=== PATIENT | male | born 1990 | race Caucasian/White ===

== ENCOUNTER 2017-09-14 12:31 | Inpatient (IN) | payer BC, OTHER ==
[~2017-09-14] VITALS: Ht 190.5 cm; Wt 108.9 kg
[2017-09-14] MEDS ORDERED: MIRALAX 17 GM POWD.PACK PO PRN (17:45)
[2017-09-14] MEDS ORDERED: ONDANSETRON 4 MG/2 ML VIAL IM PRN (17:45)
[2017-09-14] MEDS ORDERED: MAGNESIUM HYDROXIDE 30 ML LIQUID UDC PO PRN (17:45)
[2017-09-14] MEDS ORDERED: IBUPROFEN 600 MG TABLET PO PRN (17:45)
[2017-09-14] MEDS ORDERED: NICOTINE POLACRILEX 4 MG GUM-PK OF TEN BC PRN (17:45)
[2017-09-14] MEDS ORDERED: MAG HYDROX/AL HYDROX/SIMETH 30 ML LIQUID UDC PO PRN (17:45)
[2017-09-14] MEDS ORDERED: LOPERAMIDE HCL 2 MG CAPSULE PO PRN ×2 (17:45)
[2017-09-14] MEDS ORDERED: DOCUSATE SODIUM 250 MG CAPSULE PO PRN (17:45)
[2017-09-14] MEDS ORDERED: NICOTINE 14 MG/24HR PATCH TD PRN (17:45)
[2017-09-14] MEDS ORDERED: BUPRENORPHINE HCL 2 MG TAB.SUBL SL PRN (17:45)
[2017-09-14] MEDS ORDERED: METHOCARBAMOL 750 MG TABLET PO PRN (17:45)
[2017-09-14] MEDS ORDERED: ONDANSETRON ODT 4 MG TAB.RAPDIS SL PRN (17:45)
--- NOTE | 2017-09-14 17:50 | NUR ---
PRE-ASSESSMENT 09/14/17 @ 1745 MET PATIENT IN INTAKE, VS BP 130/75, HR 77, O2 SATS 98%, T 98.1 PAIN LEVEL 4/10 GENERALIZED PAIN. PATIENT APPEARS WITH A FLAT DEPRESSED AFFECT BUT COOPERATES EASILY. PER PATIENT HE IS ALLERGIC TO SULFA ANTIBIOTICS , HAS NO SEIZURE HISTORY AND FOLLOWS A REGULAR DIET. MEDICAL HISTORY PER PATIENT OF DEPRESSION CURRENTLY BEING TREATED WITH LEXAPRO 20MG/DY AND HYPOTHYROID WHICH HE TAKES 25MCG SYNTHROID DAILY. PATIENT STATES THAT HE IS HERE TO DETOX FROM HEROIN. PCP IS DR DEEPA BORRERO AND PSYCHIATRIST IS DR YG CAMPBELL. EXPLAINED TO PATIENT POLICIES OF THE FLOOR, VS Q4H. WILL FINISH ASSESSMENT WHEN PATIENT IS IN HIS ROOM .
--- NOTE | 2017-09-14 18:00 | NUR ---
ASSESSMENT 26 YEAR OLD MALE AA/OX4 PRESENTED TO [facility] TO DETOX FROM HEROIN IV. HE IS THE PRIMARY SOURCE OF INFORMATION. PATIENT IS ADMITTED UNDER THE CARE OF DR BROWN AND IS IN ROOM 310. URINE PROVIDED BY PATIENT FOR URINE DRUG SCREEN AND THOROUGH BODY AND BELONGINGS CHECK DONE. SKIN CHECK CLEAR , PATIENT APPEARS ANXIOUS WITH A FLAT AFFECT BUT COOPERATES EASILY. PT DENIES ANY HISTORY OF SEIZURES, SI/HI. PATIENT STATES HE IS ALLERGIC TO SULFA ANTIBIOTICS. WEIGHT IS 240LBS AND HEIGHT IS 6'3". SUBSTANCE OF ABUSE HISTORY: HEROIN (TAR) IV 0.5-1GM INTRAVENOUS DAILY FOR PAST 3 MONTHS LAST USED TODAY 09/14/17 1 GRAM COCAINE LAST USED 1 MONTH AGO METHAMPHETAMINE LAST USED 1 MONTH AGO. PATIENT STATES HE HAS BEEN TO TREATMENT 8 OR 9 TIMES AND WAS SOBER FOR 5 1/2 YEARS BEFORE RELAPSING IN MAY 2017. LAST TREATMENT CENTER WAS [facility] IN 2011 PATIENT HAS A HISTORY OF R ACL REPAIR AND R ANKLE REPAIR. PRIMARY CARE PHYSICIAN IS DR DEEPA BORRERO ADMITTING COWS = 4 AND CIWA 8 PATIENT ORIENTED TO THE UNIT AND ROOM, FOLLOW MD PLAN OF CARE
[2017-09-14] MEDS ORDERED: LEVO25TA9 PO (18:06)
[2017-09-14] MEDS ORDERED: ESCI20TA37 PO (18:06)
[2017-09-14 19:52] LABS: BASOPHILS % (AUTO) 0.7 % (0.0-2.0); EOSINOPHILS # (AUTO) 0.1 K/uL (0.0-0.7); EOSINOPHILS % (AUTO) 1.8 % (0.0-7.0); HEMATOCRIT 36.5 % (36.7-47.1); HEMOGLOBIN 12.3 g/dL (12.5-16.3); LYMPHOCYTES # (AUTO) 1.9 K/uL (20.0-40.0); LYMPHOCYTES % (AUTO) 39.6 % (20.5-51.5); MEAN CORPUSCULAR HGB CONC 34 g/dL (32.5-36.3); MEAN CORPUSCULAR VOLUME 86.2 fL (73.0-96.2); MONOCYTES # (AUTO) 0.3 K/uL (2.0-10.0); MONOCYTES % (AUTO) 7.2 % (0.0-11.0); NEUTROPHILS # (AUTO) 2.4 K/uL (1.8-8.9); NEUTROPHILS % (AUTO) 50.7 % (38.5-71.5); PLATELET COUNT (AUTO) 259 K/uL (152-348); RED BLOOD CELL COUNT(AUTO) 4.24 MIL/uL (4.06-5.63); WHITE BLOOD COUNT (AUTO) 4.8 K/uL (3.6-10.2)
[2017-09-14 20:00] VITALS: BP 113/66
[2017-09-14 20:02] LABS: ETHANOL < 3 MG/DL (0-0)
[2017-09-14 20:03] LABS: ALANINE AMINOTRANSFERASE 150 U/L (16-63); ALKALINE PHOSPHATASE 76 U/L (50-136); ASPARTATE AMINOTRANSFERASE 59 U/L (15-37); BILIRUBIN,TOTAL 0.5 mg/dL (0.2-1.0); CARBON DIOXIDE 33 mmol/L (21-32); CHLORIDE 99 mmol/L (98-107); CREATININE 0.8 mg/dL (0.6-1.3); GLUCOSE 108 mg/dL (74-106); MAGNESIUM 1.8 mg/dL (1.8-2.4); POTASSIUM 3.9 mmol/L (3.5-5.1); TOTAL PROTEIN, SERUM 7.5 g/dL (6.4-8.2); UREA NITROGEN, BLOOD 16 mg/dL (7-18)
[2017-09-14 20:11] LABS: THYROID STIMULATING HORMONE 0.884 mIU/mL (0.358-3.740)
[2017-09-14 20:12] LABS: *AMPHETAMINE, URINE NEGATIVE (NEGATIVE); *BARBITURATE, URINE NEGATIVE (NEGATIVE); *CANNABINOID, URINE NEGATIVE (NEGATIVE); *COCCAINE, URINE NEGATIVE (NEGATIVE); *OPIATE, URINE POSITIVE (NEGATIVE); *PHENCYCLIDINE SCREEN,URINE NEGATIVE (NEGATIVE)
[2017-09-14] MEDS: ACETAMINOPHEN 325 MG TABLET PO PRN (20:45)
[2017-09-14] MEDS: GABAPENTIN 300 MG CAPSULE PO SCH (20:46)
[2017-09-14] MEDS: diphenhydrAMINE 50 MG CAPSULE PO PRN (20:46)
--- NOTE | 2017-09-14 20:46 | NUR ---
PRN TYLENOL 650 MG 2 TAB FOR PAIN, PRN NICOTINE GUM-PK OF TEN 4 MG 1 GUM, AND PRN BENADRYL 50 MG 1 CAP FOR INSOMNIA ADMINISTRATED TO PATIENT ORDERED. PATIENT TOLERATED WELL. ALL NEEDS MET. SAFETY MEASURES ON PLACE. CALL LIGHT WITHIN REACH, BED IN LOWEST POSITION, AND LOCKED, PADDED RAILS UP BILATERALLY. WILL CONTINUE TO MONITOR CLOSELY.
--- NOTE | 2017-09-14 21:46 | NUR ---
RE-ASSESSMENT Patient is sleeping. Respirations even and unlabored. RR 16. PRN Tylenol 650 mg 2tab PO for pain, PRN Nicotine Gum-Pk of ten 4 mg 1 Gum, and PRN Benadryl 50 mg 1 cap for insomnia administrated @2045 were effective. All needs met. Safety measures on place. Call light within reach, bed in lowest position and locked, padded rails up bilaterally rails up bilaterally. Will continue to monitor closely.
[2017-09-15] VITALS: BP 132/74
[2017-09-15 04:00] VITALS: BP 113/67
[2017-09-15] MEDS: LEVOTHYROXINE 25 MCG PO SCH (06:23)
--- NOTE | 2017-09-15 06:50 | NUR ---
END OF SHIFT NOTE 26 year old male admitted to [facility] on 09/14/2017 for Opioid, Methamphetamine, and Cocaine dependence. Patient is on PRN Medications with tolerated well without ASE. Patient reports Allergy to Sulfa, Sulfa (Sulfonamide Antibiotics), is on Full Code, Regular Diet, and Fall Precautions. PMH: Anxiety, Depression, Hypothyroidism, Insomnia, Narcolepsy, Right Knee repair r/t sport injury, and Right ankle repair r/t accident injury. Last COWS 6 @0400. Patient presented with anxiety, agitation, sweating, and tremors, that can be felt. COWS taken when patient's awake during night. Last VS @0400: T 98.3, BP 113/67, HR 75, RA SPO2 100%, RR 17, pain level "0/10". Patient denies SI/HI. Respirations unlabored and even. Patient denied SOB and chest pain. Skin is intact, warm and dry to touch. PRN Tylenol 650 mg 2tab PO for pain, PRN Nicotine Gum-Pk of ten 4 mg 1 Gum, and PRN Benadryl 50 mg 1 cap for insomnia administrated @2045 were effective. Patient remains compliant with treatment plan, medications, and diet regime. Patient slept 7 hours, intake 796 ml, voided x1. Encouraged fluids intake as tolerated. All needs met. Safety measures on place. Call light within reach, bed in lowest position and locked, padded rails up bilaterally. Patient endorsed to day shift nurse. Report given.
--- NOTE | 2017-09-15 07:15 | NUR ---
Start of Shift Software Verification Engineer received report on 26 year old male admitted to [facility] on 09/14/17 for Heroin, Methamphetamine and Cocaine detoxification. Pt reports allergy to Sulfa, full code and eats a regular diet. Pt reports a PMH of anxiety, depression, narcolepsy and insomnia. Skin is intact. Pt currently not on a taper and was administered Tylenol, Benadryl and nicotine gum on PRN basis on the NOC. Last recorded COWS 6, per report. Software Verification Engineer encounters pt in room resting on bed with eyes closed. Even and unlabored respirations with rise and fall of chest noted. Bed in low position, wheels locked and side rails up x2. Will continue to monitor, support and encourage according to plan of care.
[2017-09-15 08:13] VITALS: BP 127/77
[2017-09-15] MEDS ORDERED: INFLUENZA VACCINE 2017-2018 0.5 ML DISP.SYRIN IM ONE (09:00)
[2017-09-15] MEDS ORDERED: PNEUMOCOCCAL 23-VAL P-SAC VAC 0.5 ML VIAL IM ONE (09:00)
[2017-09-15] MEDS ORDERED: TUBERCULIN,PURIF.PROT.DERIV. 5 TU/0.1 ML TEST ID ONE (09:00)
[2017-09-15] MEDS: CLONIDINE HCL 0.1 MG TABLET PO PRN ×2 (09:16→17:21)
[2017-09-15] MEDS: GABAPENTIN 300 MG CAPSULE PO SCH ×3 (09:16→21:12)
[2017-09-15] MEDS: DICYCLOMINE HCL 20 MG TABLET PO PRN ×2 (09:16→17:21)
--- NOTE | 2017-09-15 09:16 | NUR ---
PRN Bentyl/Clonidine Pt complain of stomach cramps and chills and anxiety. Pt attempted non-pharmacological interventions with no success. Commercial Trailer Truck Driver administered medication per MD order and pt tolerated well. Will continue to monitor, support and encourage according to plan of care.
--- NOTE | 2017-09-15 09:26 | NUR ---
PRN Subutex Refusal Marine Rigger assessed pt with a COWS of 12 and pulled medication for pt's symptoms, including Subutex. Pt refused Subutex, " I don't think I want to start that yet." Marine Rigger and CRN returned Subutex to Pyxis. Will continue to monitor, support and encourage according to plan of care.
--- NOTE | 2017-09-15 10:16 | NUR ---
PRN Re-Assessment " I am feeling a little better. I am feeling it." Pt is resting and endorses relief. Will continue to monitor, support and encourage according to plan of care.
[2017-09-15 12:41] VITALS: BP 139/70
[2017-09-15] MEDS: DICYCLOMINE HCL 20 MG TABLET PO SCH ×2 (15:00→21:12)
[2017-09-15] MEDS ORDERED: Medication Not On Formulary EA (Escitalopram Oxalate 1 TAB) PO SCH (15:15)
[2017-09-15] MEDS: ESCITALOPRAM OXALATE 10 MG TABLET PO SCH (15:36)
[2017-09-15 16:15] VITALS: BP 117/65
[2017-09-15] MEDS: LORAZEPAM 1 MG TABLET PO PRN (17:22)
--- NOTE | 2017-09-15 17:24 | NUR ---
PRN Ativan/Robaxin/Bentyl/Clonidine Pt asks typewriter aligner for relief of symptoms. States, " I am considering the Subutex, what else do you have?" Pt states he wants to try and stay away from Subutex until needed. Customer Insight Analyst educated pt on benefits of all medication offered and explained we can treat the symptoms and see how pt feels. Pt states, " let's do that, I want to wait on the Subutex." Customer Insight Analyst administered medication, per MD orders, pt tolerated well. Will continue to monitor, support and encourage according to plan of care.
--- NOTE | 2017-09-15 18:24 | NUR ---
PRN Re-Assessment Pt with no further complaints. Pt in room resting on bed with eyes closed. Even and unlabored respirations with rise and fall of chest noted. Bed in low position, wheels locked and side rails up x2. Will continue to monitor, support and encourage according to plan of care.
--- NOTE | 2017-09-15 19:00 | NUR ---
End of Shift Crew Leader provided report on 26 year old male admitted to [facility] on 09/14/17 for Heroin, Methamphetamine and Cocaine detoxification. Pt reports allergy to Sulfa, full code and eats a regular diet. Pt reports a PMH of anxiety, depression, narcolepsy and insomnia. Skin is intact. Pt currently not on a taper and was administered Bentyl and Clonidine at 0916 and Ativan/Robaxin/Clonidine/Bentyl at 1730. Pt endorses experience with detoxing and is comfortable waiting on Subutex and treating the symptoms. COWS of 11 recorded at 1730. Pt has been in bed the entire shift. Pt is pleasant on approach and polite. A/O x4 and able to make needs known. Calm and cooperative. Bed in low position, wheels locked and side rails up x2. Will continue to monitor, support and encourage according to plan of care.
--- NOTE | 2017-09-15 19:05 | NUR ---
Start of Shift Patient Received. Patient is in his room, awake, alert and verbally responsive. Breathing even and non labored. Patient is a 26 year old male that continues on PRN medications for increased signs and symptoms of withdrawals. Per endorsement, Patient has not started on a taper due to signs and symptoms being managed with PRN Medications. patient was given PRN Ativan 2mg, Robaxin, Bentyl x2, Clonidine x2 with medications noted to be effective. PRN Subutex 4mg on hand for increased COWS. Last noted COWS 11. All needs attended to promptly. Will continue plan of care as ordered.
[2017-09-15 20:45] VITALS: BP 115/71
[2017-09-15] MEDS: HYDROXYZINE PAMOATE 25 MG CAPSULE PO PRN (21:12)
[2017-09-15] MEDS: CLONIDINE HCL 0.1 MG TABLET PO SCH (21:12)
[2017-09-15] MEDS: diphenhydrAMINE 50 MG CAPSULE PO PRN (21:12)
--- NOTE | 2017-09-15 21:15 | NUR ---
PRN Medication Administration Patient is noted to verbalize increased pain due to body aches, increased anxiety, and inability of falling asleep. Patient states "I'm just tossing and turning." PRN Motrin, Vistaril and Benadryl administered with routine medications. Will continue to monitor
--- NOTE | 2017-09-15 22:15 | NUR ---
PRN Medication Reassessment Patient is noted in bed sleeping. Breathing even and non labored. No signs of restlessness or discomfort noted. No facial grimacing noted. PRN Motrin, Vistaril, and Benadryl noted to be effective. Will continue to monitor.
[2017-09-16 00:36] VITALS: BP 118/71
[2017-09-16 04:23] VITALS: BP 117/69
[2017-09-16] MEDS: LEVOTHYROXINE 25 MCG PO SCH (06:58)
--- NOTE | 2017-09-16 07:05 | NUR ---
End of Shift Patient is in bed sleeping. Breathing even and non labored. No signs of restlessness or discomfort noted. Patient is a 26 year old male that continues on PRN medications for increased signs and symptoms of withdrawals. Patient received PRN Motrin, Vistaril, and Benadryl with medications noted to be effective. Last noted COWS 9. All needs attended to promptly. Will endorse to continue plan of care as ordered.
--- NOTE | 2017-09-16 07:20 | NUR ---
START OF SHIFT PATIENT IS A 26 YEAR OLD MALE ADMITTED TO [facility] ON 09/14/17 FOR HEROIN WITHDRAWAL. PATIENT IS ASLEEP IN BED AT THIS TIME, BREATHING EVEN AND UNLABORED, SIDE RAILS UP X 2. PRN MEDICATIONS GIVEN ON PM SHIFT : MOTRIN, VISTARIL AND BENADRYL, PATIENT SLEPT FOR 9 HOURS AND LAST COWS WAS 9. PATIENT HAS ALLERGIES TO SULFA ANTIBIOTICS. WILL FOLLOW MD PLAN OF CARE.
[2017-09-16 08:00] VITALS: BP 127/83
[2017-09-16] MEDS: GABAPENTIN 300 MG CAPSULE PO SCH ×3 (08:24→20:46)
[2017-09-16] MEDS: HYDROXYZINE PAMOATE 25 MG CAPSULE PO PRN ×2 (08:24→20:40)
--- NOTE | 2017-09-16 08:24 | NUR ---
PRN VISTARIL VISTARIL 25MG PO GIVEN FOR PATIENTS COMPLAINTS OF RESTLESSNESS AND ANXIETY LEVEL OF 7/10, WILL CONTINUE TO MONITOR AND REASSESS, SAFETY MEASURES IN PLACE, CALL LIGHT WITHIN REACH. Addendum: 09/16/17 at 1152 by VERITO LIMA RN PRN ATIVAN 2MG PO AND SUBUTEX 4 MG SL GIVEN TO PATIENT WILL CONTINUE TO MONITOR EFFECTIVENESS
[2017-09-16] MEDS: ESCITALOPRAM OXALATE 10 MG TABLET PO SCH (08:25)
[2017-09-16] MEDS: LORAZEPAM 1 MG TABLET PO PRN (08:25)
[2017-09-16] MEDS: CLONIDINE HCL 0.1 MG TABLET PO SCH ×3 (08:25→20:40)
[2017-09-16] MEDS: DICYCLOMINE HCL 20 MG TABLET PO SCH ×3 (08:25→20:41)
--- NOTE | 2017-09-16 09:24 | NUR ---
REASSESS PRN PATIENT STATES HE " FEELS LESS ANXIOUS" ANXIETY LEVEL NOW 4/10, WILL CONTINUE TO MONITOR.
--- NOTE | 2017-09-16 09:24 | NUR ---
PRN ATIVAN/SUBUTEX REASSESS COWS REDUCED FROM 13 TO 9 CIWA REDUCED FROM 9 TO 7 PATIENT STATES MEDICATIONS HAVE HELPED HIM CONTROL HIS ANXIETY AND WITHDRAWAL SYMPTOMS. CONTINUE TO MONITOR
[2017-09-16 11:07] LABS: HEPATITIS B SURFACE AG Negative (Negative)
[2017-09-16 12:00] VITALS: BP 137/83
[2017-09-16] MEDS: BUPRENORPHINE HCL 2 MG TAB.SUBL SL SCH ×2 (15:08→20:39)
[2017-09-16 16:00] VITALS: BP 127/70
--- NOTE | 2017-09-16 18:56 | NUR ---
End of Shift : Patient is a 26 year old male admitted to [facility] on 09/14/17 for withdrawal from heroin IV. Patient presented this morning with a flat, depressed affect and stated I want to take my detox meds and feel better . Patient complains of all over muscle cramps and Myalgia . patient requested and required PRN Ativan 2mg PO and Subutex 4mg SL and Vistaril 25mg PO to control his withdrawal symptoms of anxiety, agitation , restlessness and muscle aches for a COWS score of 13 and CIWA of 9@ 0800. Scheduled Subutex 2mg SL given at 1500 and to continue at 2100 and 0900 09/17/17. Patient responded well to medications and withdrawal symptoms decreased to a manageable level. Patient has attended groups today . Last COWS 8 @ 1600. Fluid intake today 2275 with 3voids and [address] BM[address] Safety measures in place, bed in low locked position with side rails up x 2 and call light within reach. Follow MD plan of care. Endorsed to night nurse
--- NOTE | 2017-09-16 19:30 | NUR ---
Start of Shift Notes: Report received from day shift nurse. Pt is a 26M, admitted for Opiate Dependence on 09/14/17. Pt was in room watching TV upon start of shift. Pt is AOx4 without s/s of acute distress. Pt is full code, on regular diet, and on fall precautions. Pt noted with allergy to Sulfa. Pt reports hx of Depression, Hypothyroid, Anxiety, Insomnia, and Narcolepsy. Pt is currently on Subutex taper to manage withdrawal symptoms. Last COWS was 8 at 1600. Bed in lowest position. Side rails up x2. Call light functioning and within reach. All needs attended and met. Will continue to monitor.
[2017-09-16 20:00] VITALS: BP 116/65
[2017-09-16] MEDS: diphenhydrAMINE 50 MG CAPSULE PO PRN (20:40)
--- NOTE | 2017-09-16 20:40 | NUR ---
PRN Vistaril and PRN Benadryl: Pt requested medication for anxiety. Pt stated that he is feeling "a little agitated". PRN Vistaril given as ordered. Pt also requested sleep medication. PRN Benadryl given as ordered.
--- NOTE | 2017-09-16 21:40 | NUR ---
Faviantaril PRN Reassessment: Pt in bed watching TV. Pt stated that he still feels anxiety and would let staff know if he needs additional medications if he cannot sleep on his own. Will continue to monitor.
[2017-09-16] MEDS: CLONIDINE HCL 0.1 MG TABLET PO PRN (22:43)
--- NOTE | 2017-09-16 22:43 | NUR ---
Clonidine PRN: Pt requested medication for anxiety. Pt stated he can't sleep because he feels nervous. PRN Clonidine given as ordered. Will continue to monitor.
--- NOTE | 2017-09-17 06:56 | NUR ---
End of Shift Notes: Pt is a 26M, admitted for Opiate Dependence on 09/14/17. Pt slept for 6 hours. Pt noted with COWS 8 during shift. Pt c/o anxiety and inability to sleep. PRN Vistaril, Benadryl, and Clonidine given and were effective. Bed in lowest position. Side rails up x2. Call light functioning and within reach. All needs attended and met. Will endorse to day shift nurse.
[2017-09-17] MEDS: LEVOTHYROXINE 25 MCG PO SCH (06:58)
[2017-09-17 08:00] VITALS: BP 117/74
[2017-09-17] MEDS: ESCITALOPRAM OXALATE 10 MG TABLET PO SCH (08:31)
[2017-09-17] MEDS: DICYCLOMINE HCL 20 MG TABLET PO SCH ×3 (08:31→21:00)
[2017-09-17] MEDS: CLONIDINE HCL 0.1 MG TABLET PO SCH ×2 (08:31→14:52)
[2017-09-17] MEDS: GABAPENTIN 300 MG CAPSULE PO SCH ×3 (08:31→21:00)
[2017-09-17] MEDS ORDERED: BUPRENORPHINE HCL 2 MG TAB.SUBL SL SCH (09:00)
--- NOTE | 2017-09-17 09:11 | NUR ---
START OF SHIFT Received report from chief airline radio operator nurse. Patient is 26 year old male admitted for medically supervised withdrawal from heroin. Patient is full code with allergy to sulfa. On assessment this AM: COWS: 7. Denies SOB, chest pain. Patients vitals signs: WNL. Patient reports anxiety, body aches (2/10 pain on legs), runny nose, yawning noted and dilated pupil. Compliant with AM meds. No PRN given. Patient has steady gait. Encouraged to attend group meetings today. Will continue to monitor patient.
[2017-09-17 12:00] VITALS: BP 128/77
--- NOTE | 2017-09-17 13:48 | NUR ---
THerapist prompted client to come to group today. Client agreed to attend.
[2017-09-17 16:00] VITALS: BP 129/76
--- NOTE | 2017-09-17 19:15 | NUR ---
Start of Shift Note: Received patient ambulatory with a steady gait. Patient is unshaven and appears sad. Pt is discharging tomorrow to [facility] and pt seems worried and anxious of discharge. Pt is alert & oriented x4. Pt presented with sweating, stomach cramps and restlessness. No hand tremors noted. Safety precautions are in place. Bed locked in lowest position. Both side rails up. Call light within pt's reach. Will continue to monitor patient.
--- NOTE | 2017-09-17 19:21 | NUR ---
END OF SHIFT Patient is 22 year old male admitted for medically supervised withdrawal from alcohol. Patient is full code with allergy to sulfa. Most recent CIWA 6. Patient noted to have tremors and anxiety. Patient appears guarded with poor eye contact. Patient minimizes his anxiety and tremors and states he has had his tremors for a long time. Attended group activity this afternoon [facility] shift lead will continue to monitor patient. Addendum: 09/17/17 at 1925 by EUNICE OTERO RN INCORRECT PATIENT - PLS DISREGARD THIS NOTE
--- NOTE | 2017-09-17 19:26 | NUR ---
END OF SHIFT Patient is 26 year old male admitted for medically supervised withdrawal from heroin. Patient is full code with allergy to sulfa. Most recent COWS: 5. Reports chills, dilated pupil, body aches and stomach cramps. Med complaint this shift. No PRN given. Patient attended group activities. BM X2 this shift, normal. Pending discharge. tomorrow. stem shaperpipefitter will continue to monitor patient.
[2017-09-17 20:00] VITALS: BP 132/82
[2017-09-17] MEDS ORDERED: GABA-534 PO ×2 (20:25)
[2017-09-17] MEDS ORDERED: METH-406 PO (20:25)
[2017-09-17] MEDS ORDERED: DICY20TA28 PO (20:25)
[2017-09-17] MEDS ORDERED: CLON0.1T14 PO (20:25)
[2017-09-17] MEDS ORDERED: DIPH50CA37 PO (20:25)
[2017-09-17] MEDS ORDERED: IBUP-1955 PO (20:25)
[2017-09-17] MEDS ORDERED: HYDR-3895 PO (20:25)
[2017-09-17] MEDS ORDERED: CLONIDINE HCL 0.2 MG TABLET PO SCH (21:00)
[2017-09-17] MEDS: diphenhydrAMINE 50 MG CAPSULE PO PRN (21:00)
[2017-09-17] MEDS: HYDROXYZINE PAMOATE 25 MG CAPSULE PO PRN (21:04)
--- NOTE | 2017-09-17 21:04 | NUR ---
PRN Benadryl & Vistaril Patient complained that she is unable to fall asleep d/t anxiety. Patient noted with restlessness. PRN Benadryl & Vistaril administered as ordered. Will monitor for effectiveness of medication.
--- NOTE | 2017-09-17 22:04 | NUR ---
PRN Reassessment Pt still awake at this time. Pt verbalized that medication is not effective in decreasing anxiety. Safety measures in place. Will continue to monitor patient.
[2017-09-17] MEDS: ACETAMINOPHEN 325 MG TABLET PO PRN (22:23)
[2017-09-17] MEDS: CLONIDINE HCL 0.1 MG TABLET PO PRN (22:23)
--- NOTE | 2017-09-17 22:23 | NUR ---
PRN Clonidine & Tylenol Patient complained of anxiety & mild headache. PRN Clonidine & Tylenol administered as ordered. Will monitor for effectiveness of medication.
[2017-09-17 22:30] VITALS: BP 137/84
--- NOTE | 2017-09-17 22:45 | NUR ---
PRN Maalox Pt complained of heartburn. PRN Maalox administered as ordered. Will continue to monitor patient.
--- NOTE | 2017-09-17 23:45 | NUR ---
PRN Reassessment Pt verbalized relief from heartburn after medication administration. Pt observed in bed and appears comfortable. Will continue to monitor patient.
[2017-09-18] MEDS: LEVOTHYROXINE 25 MCG PO SCH (06:47)
--- NOTE | 2017-09-18 07:27 | NUR ---
End of Shift Note: Patient completed his Subutex taper and is discharging today. Pt reports abdominal cramping, headache, & sweating. Pt has been observed anxious about discharge and a lot of times pt requests to smoke d/t anxiety. PT was given PRN Vistaril & Clonidine for anxiety and was effective. Pt also received PRN Maalox for heartburn and Tylenol for headache and were effective. Last COWS is 5. Pt remained compliant with medications and treatment. Pt still asleep at this time with no s/s of distress noted. Pt slept for a total of 6 hours. Fluid intake: 2939ml. [id number] with no bowel movement. All needs attended. Safety measures in place. Will endorse to day shift nurse.
--- NOTE | 2017-09-18 07:30 | NUR ---
START OF SHIFT Pt is a 26 yr old male, AA&Ox4. Pt was admitted on 09/14/17 for Opiate dependence and has completed a modified Subutex taper as ordered. Medication was conner well. Received report from night warehouse manager nurse. Pt is to be discharged today to [facility]. Pt's last COWS score was 5. Pt slept for 6 hrs. Pt is currently c/o mild anxiety but is able to cope with anxiety level. Skin is intact, warm and dry to touch. Safety precautions observed. Call light is within reach. Will continue to monitor. Addendum: 09/18/17 at 1022 by MAYITO YAÑEZ LVN Documentation correction, Pt was admitted for medically supervised withdrawal from Opiates
[2017-09-18 08:00] VITALS: BP 134/86
[2017-09-18 08:29] VITALS: BP 134/78
[2017-09-18] MEDS: CLONIDINE HCL 0.1 MG TABLET PO SCH (08:29)
[2017-09-18] MEDS: GABAPENTIN 300 MG CAPSULE PO SCH (08:29)
[2017-09-18] MEDS: DICYCLOMINE HCL 20 MG TABLET PO SCH (08:29)
[2017-09-18] MEDS: ESCITALOPRAM OXALATE 10 MG TABLET PO SCH (08:29)
--- NOTE | 2017-09-18 09:30 | NUR ---
DISCHARGE NOTE Pt is a 26 yr old male AA&Ox4. Pt was admitted on 09/14/17 for Opiate Dependence and has completed a modified Subutex taper as ordered. Medication was conner well. Pt has been cooperative with medication regimen and plan of care. Pt was educated on discharge summary and prescription. Pt was able to verbalize understanding. Last COWS score was 2 at 0800. VS are WNL. Pt was discharged off the unit at 0927 in stable condition to [facility]. Pt left the unit with all belonging, valuables and home medication. Addendum: 09/18/17 at 1022 by MAYITO YAÑEZ LVN Documentation correction, Pt was admitted for medically supervised withdrawal from Opiates
== END 2017-09-18 09:27 | disposition other institution (70) | DRG 895 ==
LOC: SRC 17:20
PROVIDERS: ADMIT Internal Medicine; ATTEND Internal Medicine
PROC: HZ2ZZZZ Detoxification Services for Substance Abuse Treatment (ICD-10-PCS; principal; 2017-09-14)
PROC: HZ41ZZZ Group Counseling for Substance Abuse Treatment, Behavioral (ICD-10-PCS; 2017-09-16)
PROC: HZ31ZZZ Individual Counseling for Substance Abuse Treatment, Behavioral (ICD-10-PCS; 2017-09-17)
DX: F11.23 Opioid dependence with withdrawal (principal); E87.3 Alkalosis; F33.2 Major depressive disorder, recurrent severe without psychotic features; D64.9 Anemia, unspecified; E86.0 Dehydration; F15.10 Other stimulant abuse, uncomplicated; F17.210 Nicotine dependence, cigarettes, uncomplicated; F14.10 Cocaine abuse, uncomplicated; E03.9 Hypothyroidism, unspecified; F41.9 Anxiety disorder, unspecified; G47.00 Insomnia, unspecified; Z82.49 Family history of ischemic heart disease and other diseases of the circulatory system; Z81.8 Family history of other mental and behavioral disorders; Z81.1 Family history of alcohol abuse and dependence; Z79.899 Other long term (current) drug therapy; R74.0 Nonspecific elevation of levels of transaminase and lactic acid dehydrogenase [LDH]
CPT/HCPCS: 36415; 70030-TC; 80307; 80361; 83735; 84443; 85025; 86592; 86705; 86803; 87340; 87806; 90686; 90732; G0480; Q0163